=== PATIENT | female | born 1975 | race Caucasian/White ===

== ENCOUNTER 2016-09-02 05:21 | Emergency (ER) | payer OTHER ==
[~2016-09-02] VITALS: Ht 170.2 cm; Wt 158.8 kg
[~2016-09-02 05:21] MED LIST: ACETAMINOPHEN/H1 TAB PO; BACTRIM 400 MG-1 TAB PO; BACTRIM DS 8001 TAB PO; BACTRIM DS TAB1 EACH PO; CEFTIN500 MG PO; CILOXAN 0.50 GTT/1 B OTIC; DOCUSATE SODIU100 MG PO; MAGNESIUM400 M1 PO; MEDROL DOSEPAK1 PAC PO; NAPROXEN SODIU550 M1 PO; NORCO 5-325 TA1 EACH PO; OFLOXACIN 0.3% AS; OMNICEF300 MG PO; PERCOCET 325 MG1 TA2 PO; PREDNISONE10 MG PO; PROVENTIL0.09 MG/A1 INH; ROBITUSSIN W/CO10 ML PO; TESSALON PERLE100 MG PO; VICODIN 500 MG-1 TAB PO; VICODIN5-300 PO; ZOFRAN 4MG ORALL4 MG PO; [UNRECOGNIZED DRUG - OTHER] OTIC
[2016-09-02 05:39] VITALS: BP 153/87
--- NOTE | 2016-09-02 05:51 | ED EYE COMPLAINT ---
History of Present Illness General Chief Complaint: Eye Problems Stated Complaint: " BLEACH WENT IN MY LEFT EYE" Source: patient, old records Exam Limitations: no limitations Vital Signs & Intake/Output Vital Signs & Intake/Output Vital Signs Date Time Temp Pulse Resp B/P Pulse O2 O2 Flow FiO2 Ox Delivery Rate 09/02 0539 96.3 91 16 153/87 95 Room Air Allergies Coded Allergies: latex (Intermediate, RASH 06/25/16) Penicillins (HIVES A CHILD 06/25/16) peanut (YEPEZ 06/25/16) Reconcile Medications Ciprofloxacin (Ciloxan) 0.3 % DROPS 1 GTT OPH TID CHEMICAL CONJUNCTIVITIS Magnesium Oxide (Magnesium) 400 MG CAPSULE 1 CAP PO DAILY heart Naproxen Sodium 550 MG TABLET 1 TAB PO BID PAIN (Reported) Triage Note: 41YO FEMALE TO TRIAGE W/CO L EYE PAIN, BURNING, REDNESS AND TEARING SP SPLASHING BLEACH INTO IT ON WEDNESDAY WHILE CLEANING HER SHOWER. Triage Nurses Notes Reviewed? yes : No Patient currently breastfeeds: No HPI: On Wednesday evening patient was cleaning her bathroom with bathroom pan cleaner containing bleach and some splashed into her left eye. Since then she has had a heavy feeling in the corner of her left eye and at times it feels like her eye is getting cloudy. There is no radiation of the heavy pain. There were no aggravating or mitigating factors. There is no nausea or vomiting. She states that occasionally she is having clear watery discharge from her left eye. Patient sees [facility] and has never had a problem with her eyes in the past. Past History Travel History Traveled to [place] past 21 day No Medical History Any Pertinent Medical History? 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 Hx Contributory? No Review of Systems Review of Systems Constitutional: Reports: no symptoms. Eyes: Reports: see HPI, drainage, foreign body sensation. Respiratory: Reports: no symptoms. Cardiovascular: Reports: no symptoms. Neurological/Psychological: Reports: no symptoms. Physical Exam General Appearance: well developed/nourished, alert, awake, anxious, mild distress General Inspection: normal inspection Eyelid: normal inspection, everted for exam, erythema (UPPER LATERAL ASPECT INNER LID) Conjunctiva/Sclera: normal inspection Cornea: examined w/fluorescein, abrasion EOM: intact Pupil: normal accommodation, normal pupil, PERRL Anterior Chamber: normal inspection Eye Left 1) Abrasion, anatomically fits with the erythema seen on the inner aspect of her left upper eyelid General Inspection: normal inspection Eyelid: normal inspection Conjunctiva/Sclera: normal inspection Cornea: normal inspection EOM: intact Pupil: normal accommodation, normal pupil, PERRL Physical Exam Neurologic/Psych: no motor/sensory deficits, awake, alert, oriented x 3, normal gait, normal mood/affect Progress Differential Diagnosis: corneal abrasion, corneal foreign body, conjunctivitis Plan of Care: Ciloxan and follow-up Departure Departure Disposition: HOME OR SELF CARE Condition: Stable Clinical Impression Primary Impression: Chemical conjunctivitis of left eye Referrals: PATIENT HAS NO PRIMARY CARE DR (PCP/Family) Additional Instructions: Follow-up with your eye doctor here later today or tomorrow. Return if symptoms worsen or for any concerns. Departure Forms: Customer Survey General Discharge Information Prescriptions: Current Visit Scripts Ciprofloxacin (Ciloxan) 1 GTT OPH TID #5 ML
[2016-09-02] MEDS ORDERED: CILOXAN5 ML OPH (06:01)
== END 2016-09-02 06:07 ==
LOC: ERH 05:21
DX: T54.91XA Toxic effect of unspecified corrosive substance, accidental (unintentional), initial encounter (principal); H10.212 Acute toxic conjunctivitis, left eye